=== PATIENT | male | born 1980 | race Caucasian/White ===

== ENCOUNTER 2017-09-07 22:25 | Emergency (ER) | payer SELFPAY ==
[2017-09-08] MEDS ORDERED: Sodium Chloride 0.9% 1,000 ML IV STA (00:02)
[2017-09-08] MEDS ORDERED: Thiamine 200 MG/2 ML MDV IM STA (00:02)
[2017-09-08] MEDS ORDERED: Ketorolac 60 MG/2 ML SDV IM ONE (00:04)
--- NOTE | 2017-09-08 01:40 | EDM.PDOC ---
ED HPI GENERAL MEDICAL PROBLEM - General Chief Complaint: Back Pain or Injury Stated Complaint: BACK PAIN Time Seen by Provider: 09/07/17 22:35 Source of Information: Reports: Patient, Family History Limitations: Reports: Intoxication - History of Present Illness INITIAL COMMENTS - FREE TEXT/NARRATIVE: 37 y.o.w.m came to the ED, intoxicated, with his mother. Pt stated, he was snow shoveling a few days ago and felt a spasm at his lower back, bilaterally. Pt denied direct trauma, did not fall. No stool or urine incontinence, pain is localized, not shooting down his legs. Pt is able to walk independently. No N/V /D or any other acute medical issues. Pt's mom is present, laughing every time pt was using the "F" word. 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) Associated Symptoms: Reports: Weakness, Other (intoxicated) Lower Back Pain Score (Numeric/FACES): 10 - Related Data Allergies Allergy/AdvReac Type Severity Reaction Status Date / Time No Known Allergies Allergy Verified 09/07/17 22:34 Home Meds: Home Meds Orphenadrine [Norflex] 100 mg PO BID PRN #14 tab.er 09/08/17 [Rx] Past Medical History - Infectious Disease History Infectious Disease History: Reports: Chicken Pox - Past Surgical History HEENT Surgical History: Reports: Oral Surgery Social & Family History - Family History Family Medical History: Noncontributory - Tobacco Use Smoking Status *Q: Current Every Day Smoker Years of Tobacco use: 20 Packs/Tins Daily: 1 - Caffeine Use Caffeine Use: Reports: None - Alcohol Use Days Per Week of Alcohol Use: 7 Number of Drinks Per Day: 6 Total Drinks Per Week: 42 Date of Last Drink: 09/07/17 Time of Last Drink: 21:00 - Recreational Drug Use Recreational Drug Use: No ED ROS GENERAL - Review of Systems Review Of Systems: Unable To Obtain (intoxicated.) ED EXAM,LOWER BACK PAIN/INJURY - Physical Exam Exam: See Below Exam Limited By: Intoxication General Appearance: Alert, WD/WN, Mild Distress Eye Exam: Bilateral Eye: Normal Inspection Ears: Normal External Exam, Normal Canal Nose: Normal Inspection, Normal Mucosa Throat/Mouth: Normal Inspection, Normal Lips, Normal Gums, No Airway Compromise Head: Atraumatic, Normocephalic Neck: Normal Inspection, Supple, Non-Tender, Full Range of Motion Respiratory/Chest: No Respiratory Distress, Lungs Clear, Normal Breath Sounds, Chest Non-Tender Cardiovascular: Normal Peripheral Pulses, Regular Rate, Rhythm, No Edema, No Gallop, No Rub GI/Abdominal: Normal Bowel Sounds, Soft, Non-Tender, No Abnormal Bruit (Male) Exam: No Hernia, Normal Inspection Rectal (Males) Exam: Deferred Back Exam: Normal Inspection, Muscle Spasm, Paraspinal Tenderness (lower back) Extremities: Normal Inspection, Normal Range of Motion, Non-Tender, No Pedal Edema, Normal Capillary Refill Neurological: Alert, CN II-XII Intact, Abnormal Gait (due to intoxication, but can walk independently ) Psychiatric: Depressed Mood Skin Exam: Warm, Dry, Intact, Normal Color, No Rash Lymphatic: No Adenopathy Course - Vital Signs Text/Narrative:: 37 y.o.w.m came to the ED, intoxicated, with his mother. Pt stated, he was snow shoveling a few days ago and felt a spasm at his lower back, bilaterally. Pt denied direct trauma, did not fall. No stool or urine incontinence, pain is localized, not shooting down his legs. Pt is able to walk independently. No N/V /D or any other acute medical issues. Pt's mom is present, laughing every time pt was using the "F" word. BP: 149/97, RR 14 Pulse ox 97% temp 36.4 pulse 84 PE: Intoxicated w m with low back spasm Imaging: Xray of l\\the L spine and pelvis were neg, official report is pending Labs: WBC 13k reminder of CBC and entire BMP were neg. ETOH level was 0.22 Impression: ETOH intoxication, Low back spasm (muscle) Tx: ICE, Toradol, Norflex, Thiamine Reexam: Improved Plan: D/C with instructions with his mom, who will observe him for next 24 hours. Last Recorded V/S: Last Vital Signs Temp 36.3 C 02/26/18 02:10 Pulse 77 09/08/17 02:10 Resp 17 09/08/17 02:10 BP 130/60 09/08/17 02:10 Pulse Ox 96 09/08/17 02:10 - Orders/Labs/Meds Orders: Active Orders 24 hr Category Date Time Status Lumbar Spine 2 or 3V [CR] Stat Exams 09/08/17 00:52 Taken Pelvis 1V or 2V [CR] Stat Exams 09/08/17 00:52 Taken Labs: Laboratory Tests 09/07/17 09/07/17 09/07/17 Range/Units 22:40 22:40 22:40 WBC 13.6 H (4.5-12.0) X10-3/uL RBC 4.98 (4.30-5.75) x10(6)uL Hgb 15.1 (11.5-15.5) g/dL Hct 45.3 (30.0-51.3) % MCV 91.0 (80-96) fL MCH 30.3 (27.7-33.6) pg MCHC 33.3 (32.2-35.4) g/dL RDW 13.4 (11.5-15.5) % Plt Count 306 (125-369) X10(3)uL MPV 8.9 (7.4-10.4) fL Neut % (Auto) 54.7 (46-82) % Lymph % (Auto) 31.1 (13-37) % [facility] % (Auto) 9.7 (4-12) % Eos % (Auto) 3 (1.0-5.0) % Baso % (Auto) 2 (0-2) % Neut # (Auto) 7.5 (1.6-8.3) # Lymph # (Auto) 4.2 (0.6-5.0) # [facility] # (Auto) 1.3 (0.0-1.3) # Eos # (Auto) 0.4 (0.0-0.8) # Baso # (Auto) 0.2 (0.0-0.2) # Sodium 135 (135-145) mmol/L Potassium 3.6 (3.5-5.3) mmol/L Chloride 100 (100-110) mmol/L Carbon Dioxide 25 (21-32) mmol/L BUN 11 (7-18) mg/dL Creatinine 1.0 (0.70-1.30) mg/dL Est Cr Clr Drug Dosing TNP Estimated GFR (MDRD) > 60 (>60) BUN/Creatinine Ratio 11.0 (9-20) Glucose 102 (80-116) mg/dL Calcium 8.6 (8.6-10.2) mg/dL Urine Opiates Screen (NEGATIVE) Ur Oxycodone Screen (NEGATIVE) Ur Propoxyphene Screen (NEGATIVE) Ur Barbituates Screen (NEGATIVE) Ur Tricyclics Screen (NEGATIVE) Ur Phencyclidine Scrn (NEGATIVE) Ur Amphetamine Screen (NEGATIVE) Urine MDMA Screen (NEGATIVE) U Benzodiazepines Scrn (NEGATIVE) U Cocaine Metab Screen (NEGATIVE) U Marijuana (THC) Screen (NEGATIVE) Ethyl Alcohol 0.22 H* (<0.03) % 09/07/17 Range/Units 22:56 WBC (4.5-12.0) X10-3/uL RBC (4.30-5.75) x10(6)uL Hgb (11.5-15.5) g/dL Hct (30.0-51.3) % MCV (80-96) fL MCH (27.7-33.6) pg MCHC (32.2-35.4) g/dL RDW (11.5-15.5) % Plt Count (125-369) X10(3)uL MPV (7.4-10.4) fL Neut % (Auto) (46-82) % Lymph % (Auto) (13-37) % [facility] % (Auto) (4-12) % Eos % (Auto) (1.0-5.0) % Baso % (Auto) (0-2) % Neut # (Auto) (1.6-8.3) # Lymph # (Auto) (0.6-5.0) # [facility] # (Auto) (0.0-1.3) # Eos # (Auto) (0.0-0.8) # Baso # (Auto) (0.0-0.2) # Sodium (135-145) mmol/L Potassium (3.5-5.3) mmol/L Chloride (100-110) mmol/L Carbon Dioxide (21-32) mmol/L BUN (7-18) mg/dL Creatinine (0.70-1.30) mg/dL Est Cr Clr Drug Dosing Estimated GFR (MDRD) (>60) BUN/Creatinine Ratio (9-20) Glucose (80-116) mg/dL Calcium (8.6-10.2) mg/dL Urine Opiates Screen Negative (NEGATIVE) Ur Oxycodone Screen Negative (NEGATIVE) Ur Propoxyphene Screen Negative (NEGATIVE) Ur Barbituates Screen Negative (NEGATIVE) Ur Tricyclics Screen Negative (NEGATIVE) Ur Phencyclidine Scrn Negative (NEGATIVE) Ur Amphetamine Screen Negative (NEGATIVE) Urine MDMA Screen Negative (NEGATIVE) U Benzodiazepines Scrn Negative (NEGATIVE) U Cocaine Metab Screen Negative (NEGATIVE) U Marijuana (THC) Screen Negative (NEGATIVE) Ethyl Alcohol (<0.03) % Meds: Medications Discontinued Medications Generic Name Dose Route Start Last Admin Trade Name Freq PRN Reason Stop Dose Admin Sodium Chloride 1,000 mls @ 999 mls/hr 09/08/17 00:02 09/08/17 02:15 Normal Saline IV 09/08/17 01:02 Not Given .BOLUS STA Ketorolac Tromethamine 60 mg 09/08/17 00:04 09/08/17 00:22 Toradol IM 09/08/17 00:05 60 mg ONETIME ONE Administration Orphenadrine Citrate 60 mg 09/08/17 00:15 09/08/17 00:25 Norflex IM 60 mg Q12H SOLIS Administration Thiamine HCl 100 mg 09/08/17 00:02 09/08/17 00:18 Vitamin B-1 IM 09/08/17 00:03 100 mg ONETIME STA Administration Departure - Departure Time of Disposition: 01:36 Disposition: Home, Self-Care 01 Condition: Good Clinical Impression: ETOH abuse Elevated ETOH level Qualifiers: Blood alcohol level: 200-239 mg/100 ml Qualified Code(s): Y90.7 - Blood alcohol level of 200-239 mg/100 ml Low back pain Qualifiers: Chronicity: acute Back pain laterality: bilateral Sciatica presence: without sciatica Qualified Code(s): M54.5 - Low back pain - Discharge Information Prescriptions: Orphenadrine [Norflex] 100 mg PO BID PRN #14 tab.er PRN Reason: back spasm Instructions: Back Exercises, [id number], Back Pain, Adult, [id number] Referrals: PCP,None [Primary Care Provider] - Forms: ED Department Discharge Additional Instructions: Please avoid ETOH, please apply ice to lower back, take mortin and Norflex as recommended, please f/u with your PMD, please come back if your symptoms get worse acutely - My Orders Last 24 Hours: My Active Orders 09/08/17 00:52 Lumbar Spine 2 or 3V [CR] Stat Pelvis 1V or 2V [CR] Stat - Assessment/Plan Last 24 Hours: My Active Orders 09/08/17 00:52 Lumbar Spine 2 or 3V [CR] Stat Pelvis 1V or 2V [CR] Stat
--- NOTE | 2017-09-08 14:40 | CR ---
INDICATION: Back pain after shoveling snow. LUMBOSACRAL SPINE: Three views of the lumbosacral spine revealed a minimal dextroconvex scoliosis of the upper lumbar spine. Vertebral body and disk heights were well-maintained without a definite fracture or dislocation, except the possibility of slightly diminished disk space at L4-5, which could be on the basis of disk disease. This should be correlated clinically. Pedicles appear to be intact. Sacroiliac joints appear to be intact. Bone density appeared to be normal. IMPRESSION: 1. Mild scoliosis. 2. No acute fracture or dislocation. 3. Cannot entirely exclude minimal disk disease at L4-5. MTDD
--- NOTE | 2017-09-08 14:42 | CR ---
INDICATION: Back pain after shoveling snow. PELVIS: Single frontal view of the pelvis was obtained and reveals sacroiliac joints and hip joints to be well-maintained without fracture or dislocation. Normal bone density is noted. IMPRESSION: Normal pelvis. MTDD
== END 2017-09-08 02:10 | disposition home or self-care (01) ==
LOC: FB.ED 22:25
DX: M54.5 Low back pain (principal); F17.210 Nicotine dependence, cigarettes, uncomplicated; F10.129 Alcohol abuse with intoxication, unspecified; Y90.7 Blood alcohol level of 200-239 mg/100 ml
CPT/HCPCS: 36415; 72100; 72170; 80048; 80305; 85025; 96372; 99284; G0480; J1885; J2360; J3411